=== PATIENT | male | born 1980 | race Caucasian/White ===

== ENCOUNTER 2017-11-01 14:25 | Emergency (ER) | payer MEDICARE, MEDICAID ==
[2017-11-01 15:38] VITALS: BP 121/83
--- NOTE | 2017-11-01 16:13 | EDM.PDOC ---
ED HPI GENERAL MEDICAL PROBLEM - General Chief Complaint: ENT Problem Stated Complaint: SWEELING ON LEFT SIDE OF FACE AND RED RASH Time Seen by Provider: 11/01/17 15:55 Source of Information: Reports: Patient, Family History Limitations: Reports: No Limitations - History of Present Illness INITIAL COMMENTS - FREE TEXT/NARRATIVE: Elvis presents today for complaints of left facial edema, rash and dental pain for 2 days. He reports significant swelling of left face yesterday with decrease while sleeping and improvement today. He reports concern of poor dental health and possible dental abscess. He denies fevers, chills, nausea, vomiting, stiff neck, sores to oral cavity or other concerns. He reports use of herbal supplements; ge seal, olive leaf extract and eye bright vitamins. - Related Data Allergies Allergy/AdvReac Type Severity Reaction Status Date / Time No Known Allergies Allergy Verified 07/22/14 17:22 Home Meds: Home Meds Benztropine Mesylate 11/01/17 [History] Haloperidol [Haldol] 11/01/17 [History] OLANZapine [ZyPREXA] 11/01/17 [History] Omeprazole 11/01/17 [History] Past Medical History Psychiatric History: Reports: Schizophrenia Social & Family History - Tobacco Use Smoking Status *Q: Current Every Day Smoker Years of Tobacco use: 16 Packs/Tins Daily: 1.5 ED ROS ENT - Review of Systems Review Of Systems: See Below Constitutional: Denies: Fever, Chills, Malaise, Weakness HEENT: Reports: Dental Pain. Denies: Ear Discharge, Ear Pain, Rhinitis, Sinus Problem, Throat Pain, Throat Swelling Respiratory: Denies: Shortness of Breath, Wheezing, Cough, Sputum Cardiovascular: Denies: Chest Pain, Dyspnea on Exertion, Edema, Lightheadedness , Palpitations, PND, Syncope Endocrine: Reports: No Symptoms GI/Abdominal: Reports: No Symptoms : Reports: No Symptoms Musculoskeletal: Denies: Neck Pain, Joint Pain, Joint Swelling, Muscle Pain, Muscle Stiffness Skin: Reports: Rash, Other (edema to left face/neck) Neurological: Denies: Confusion, Dizziness, Headache, Numbness, Tingling, Difficulty Walking, Weakness, Gait Disturbance Psychiatric: Reports: No Symptoms Hematologic/Lymphatic: Reports: No Symptoms Immunologic: Reports: No Symptoms ED EXAM, ENT - Physical Exam Exam: See Below Text/Narrative:: Elvis is an alert and oriented 37 year old male presenting with complaints of dental pain, edema to left side of face and concern of dental decay. He denies fever, chills, nausea, vomiting or wounds of mouth. Exam Limited By: No Limitations General Appearance: Alert, WD/WN, No Apparent Distress Eye Exam: Bilateral Eye: EOMI, Normal Inspection, PERRL Ears: Normal External Exam, Normal Canal, Hearing Grossly Normal, Normal TMs Nose: Normal Inspection, Normal Mucousa, No Blood Mouth/Throat: Dental Pain, Dental Tenderness, Gum Swelling, Muffled Voice, Pharyngeal Erythema, Tonsillar Erythema, Tonsillar Swelling, Other (significant dental decay to all remaining teeth, several cracked and missing teeth. Tenderness to teeth of left upper and lower dentition. ). No: Throat Pain, Throat Swelling, Tongue Swelling, Tonsillar Exudates, Uvular Deviation, Uvular Edema Head: Atraumatic, Normocephalic, Facial Swelling, Facial Tenderness, Other ( trace edema to left face, no erythema, fluctuance or fluid filled masses. Noted pustular rash to left cheek, no open or draining areas. ). No: Scalp Swelling, Scalp Tenderness, Facial Abrasions, Facial Ecchymosis, Sinus Tenderness Neck: Supple, Non-Tender, Full Range of Motion, Lymphadenopathy (L). No: Lymphadenopathy (R) Respiratory/Chest: No Respiratory Distress, Lungs Clear, Normal Breath Sounds, No Accessory Muscle Use, Chest Non-Tender Cardiovascular: Normal Peripheral Pulses, Regular Rate, Rhythm, No Edema, No Murmur, No Rub Back: Normal Inspection, Full Range of Motion. No: CVA Tenderness (R), CVA Tenderness (L) Extremities: Normal Inspection, Normal Range of Motion, Non-Tender, No Pedal Edema, Normal Capillary Refill Neurological: Alert, Oriented, CN II-XII Intact, Normal Cognition, No Motor/ Sensory Deficits Psychiatric: Normal Affect, Normal Mood Skin: Warm, Dry, Normal Color, Rash, Other (small pustular type rash to left cheek, no drainage noted. ). No: Ecchymosis, Erythema, Increased Warmth Course - Vital Signs Last Recorded V/S: Last Vital Signs Temp 36.9 C 11/01/17 15:51 Pulse 85 11/01/17 15:51 Resp 16 11/01/17 15:51 BP 121/83 11/01/17 15:51 Pulse Ox 91 L 11/01/17 15:51 - Orders/Labs/Meds Labs: Laboratory Tests 11/01/17 11/01/17 Range/Units 16:20 16:20 WBC 8.8 (4.5-11.0) K/uL RBC 5.67 (4.30-5.90) M/uL Hgb 16.7 H (12.0-15.0) g/dL Hct 48.0 (40.0-54.0) % MCV 85 (80-98) fL MCH 30 (27-31) pg MCHC 35 (32-36) % Plt Count 209 (150-400) K/uL Neut % (Auto) 54 (36-66) % Lymph % (Auto) 29 (24-44) % Will % (Auto) 13 H (2-6) % Eos % (Auto) 4 (2-4) % Baso % (Auto) 1 (0-1) % Sodium 142 (140-148) mmol/L Potassium 3.6 (3.6-5.2) mmol/L Chloride 102 (100-108) mmol/L Carbon Dioxide 29 (21-32) mmol/L Anion Gap 11.4 (5.0-14.0) mmol/L BUN 10 (7-18) mg/dL Creatinine 1.1 (0.8-1.3) mg/dL Est Cr Clr Drug Dosing 99.83 mL/min Estimated GFR (MDRD) > 60 (>60) Glucose 95 (74-106) mg/dL Calcium 8.6 (8.5-10.1) mg/dL Patient lab work reviewed, all his questions were answered. He will start a course of Penicillin VK, use of ibuprofen and acetaminophen for pain as well as a dental referral. Education on dental abscess, increased or worsening of pain/symptoms. Patient verbalized understanding. Meds: Medications Discontinued Medications Generic Name Dose Route Start Last Admin Trade Name Freq PRN Reason Stop Dose Admin Penicillin V Potassium 500 mg 11/01/17 17:01 11/01/17 17:09 Veetids PO 11/01/17 17:02 500 mg ONETIME ONE Administration Departure - Departure Time of Disposition: 17:04 Disposition: Home, Self-Care 01 Condition: Good Clinical Impression: Dental abscess, Rash of face - Discharge Information Instructions: Dental Abscess, [id number] Referrals: Siddharth Levine MD [Primary Care Provider] - Forms: ED Department Discharge Additional Instructions: You have been evaluated and treated for dental abscess. Take penicillin VK 500mg by mouth every 6 hours for 7 days. Take ibuprofen and acetaminophen for pain as needed. Follow up with dental clinic referral on 11/04/17 for further care. Return for worsening, issues or concerns. - Assessment/Plan Assessment:: Dental Abscess Rash of face Plan: Patient evaluated and treated for dental abscess. Take penicillin VK 500mg by mouth every 6 hours for 7 days. Take ibuprofen and acetaminophen for pain as needed. Wash skin per usual routine, may use hydrocortisone for rash as needed. Follow up with primary for recheck of rash or with worsening. Rash could be from significant edema which has resolved. Follow up with dental clinic referral on 11/04/17 for further care. Return for worsening, issues or concerns.
[2017-11-01] MEDS ORDERED: Penicillin V Potassium 250 MG Tab PO ONE (17:01)
== END 2017-11-01 17:15 | disposition home or self-care (01) ==
LOC: JP.ED 14:25
DX: K04.7 Periapical abscess without sinus (principal); R51 Headache; F17.210 Nicotine dependence, cigarettes, uncomplicated; Z79.899 Other long term (current) drug therapy
CPT/HCPCS: 36415; 80048; 85025; 99283; A9270

== ENCOUNTER 2019-02-24 14:33 | Emergency (ER) | payer MEDICARE, MEDICAID ==
[2019-02-24] MEDS ORDERED: OLANZapine 10 MG Vial IM ONE (15:45)
[2019-02-24 16:02] VITALS: BP 142/97; PULSE 97
--- NOTE | 2019-02-24 16:05 | EDM.PDOCBH ---
ED HPI GENERAL MEDICAL PROBLEM - General Chief Complaint: Behavioral/Psych Stated Complaint: EVAL Time Seen by Provider: 02/24/19 16:04 Source of Information: Reports: Patient History Limitations: Reports: No Limitations - History of Present Illness INITIAL COMMENTS - FREE TEXT/NARRATIVE: pt arrived with a history of being off of his meds for 6 monthes. He has not been doing well. He is not eating on a regular basis. He has lost 30-40 lbs recently. He is a known schiophrenic and may be bipolar. He is adhd. He saw William today at the clinic and when they started talking about inpatient treatment he eloped and the x ray technologist had to find him. He has been hospitalized multiple times . He is quite noncompliant with his meds. Onset: Gradual Duration: Hour(s): Location: Reports: Generalized Associated Symptoms: Reports: Confusion, Loss of Appetite, Other ( weight loss) - Related Data Allergies Allergy/AdvReac Type Severity Reaction Status Date / Time No Known Allergies Allergy Verified 07/22/14 17:22 Home Meds: Home Meds Benztropine Mesylate 2 mg PO BID 11/01/17 [History] Omeprazole 40 mg PO BID 11/01/17 [History] FLUoxetine HCl [Fluoxetine HCl] 20 mg PO DAILY 02/24/19 [History] Haloperidol [Haldol] 2 mg PO DAILY 02/24/19 [History] OLANZapine [Olanzapine] 5 mg PO BID 02/24/19 [History] Past Medical History Psychiatric History: Reports: Schizophrenia ED ROS GENERAL - Review of Systems Review Of Systems: See Below Constitutional: Reports: Decreased Appetite, Weight Loss HEENT: Reports: No Symptoms Respiratory: Reports: No Symptoms Cardiovascular: Reports: No Symptoms Endocrine: Reports: No Symptoms GI/Abdominal: Reports: No Symptoms, Decreased Appetite, Other ( weight loss) : Reports: No Symptoms Musculoskeletal: Reports: No Symptoms Skin: Reports: No Symptoms ED EXAM, BEHAVIORAL HEALTH - Physical Exam Exam: See Below Text/Narrative:: pt is very difficult top converse with. He has flight of ideas and is not answering thing appropiately. Pt has been off of all meds for about 6 monthes. Exam Limited By: No Limitations General Appearance: Alert, No Apparent Distress, Other (pupils equal and reactive. ) Ears: Normal TMs Nose: Normal Inspection Throat/Mouth: Normal Inspection Head: Atraumatic Neck: Normal Inspection Respiratory/Chest: No Respiratory Distress Cardiovascular: Regular Rate, Rhythm GI/Abdominal: Soft, Non-Tender (Male) Exam: Deferred Rectal (Males) Exam: Deferred Back Exam: Normal Inspection Neurological: Alert, Normal Cognition, Oriented x 3 Psychiatric: Alert, Oriented, Oriental Orthodox Delusions COURSE, BEHAVIORAL HEALTH COMP - Course Vital Signs: Last Vital Signs Temp 36.5 C 02/24/19 16:29 Pulse 97 02/24/19 16:29 Resp 17 02/24/19 16:29 BP 142/97 H 02/24/19 16:29 Pulse Ox 96 02/24/19 16:29 Orders, Labs, Meds: Laboratory Tests 02/24/19 02/24/19 02/24/19 Range/Units 15:09 15:09 15:09 WBC 14.1 H (4.5-11.0) K/uL RBC 5.72 (4.30-5.90) M/uL Hgb 16.6 H (12.0-15.0) g/dL Hct 50.4 (40.0-54.0) % MCV 88 (80-98) fL MCH 29 (27-31) pg MCHC 33 (32-36) % Plt Count 288 (150-400) K/uL Neut % (Auto) 67 H (36-66) % Lymph % (Auto) 25 (24-44) % [place] % (Auto) 6 (2-6) % Eos % (Auto) 3 (2-4) % Baso % (Auto) 0 (0-1) % Sodium 141 (140-148) mmol/L Potassium 3.9 (3.6-5.2) mmol/L Chloride 103 (100-108) mmol/L Carbon Dioxide 29 (21-32) mmol/L Anion Gap 9.2 (5.0-14.0) mmol/L BUN 5 L (7-18) mg/dL Creatinine 0.9 (0.8-1.3) mg/dL Est Cr Clr Drug Dosing TNP Estimated GFR (MDRD) > 60 (>60) Glucose 97 (74-106) mg/dL Calcium 9.3 (8.5-10.1) mg/dL Total Bilirubin 0.5 (0.2-1.0) mg/dL AST 23 (15-37) U/L ALT 29 (12-78) U/L Alkaline Phosphatase 74 (46-116) U/L Total Protein 7.1 (6.4-8.2) g/dL Albumin 3.9 (3.4-5.0) g/dL Globulin 3.2 (2.3-3.5) g/dL Albumin/Globulin Ratio 1.2 (1.2-2.2) Urine Color (YELLOW) Urine Appearance (CLEAR) Urine pH (5.0-8.0) Ur Specific [place] (1.008-1.030) Urine Protein (NEGATIVE) mg/dL Urine Glucose (UA) (NEGATIVE) mg/dL Urine Ketones (NEGATIVE) mg/dL Urine Occult Blood (NEGATIVE) Urine Nitrite (NEGATIVE) Urine Bilirubin (NEGATIVE) Urine Urobilinogen (0.2-1.0) EU/dL Ur Leukocyte Esterase (NEGATIVE) Urine RBC (0-5) Urine WBC (0-5) Ur Epithelial Cells Amorphous Sediment Urine Bacteria Urine Mucus Urine Opiates Screen (NEGATIVE) Ur Oxycodone Screen (NEGATIVE) Urine Methadone Screen (NEGATIVE) Ur Propoxyphene Screen (NEGATIVE) Ur Barbiturates Screen (NEGATIVE) Ur Tricyclics Screen (NEGATIVE) Ur Phencyclidine Scrn (NEGATIVE) Ur Amphetamine Screen (NEGATIVE) U Methamphetamines Scrn (NEGATIVE) Urine MDMA Screen (NEGATIVE) U Benzodiazepines Scrn (NEGATIVE) U Cocaine Metab Screen (NEGATIVE) U Marijuana (THC) Screen (NEGATIVE) Ethyl Alcohol < 3 mg/dL 02/24/19 02/24/19 Range/Units 15:18 15:18 WBC (4.5-11.0) K/uL RBC (4.30-5.90) M/uL Hgb (12.0-15.0) g/dL Hct (40.0-54.0) % MCV (80-98) fL MCH (27-31) pg MCHC (32-36) % Plt Count (150-400) K/uL Neut % (Auto) (36-66) % Lymph % (Auto) (24-44) % [place] % (Auto) (2-6) % Eos % (Auto) (2-4) % Baso % (Auto) (0-1) % Sodium (140-148) mmol/L Potassium (3.6-5.2) mmol/L Chloride (100-108) mmol/L Carbon Dioxide (21-32) mmol/L Anion Gap (5.0-14.0) mmol/L BUN (7-18) mg/dL Creatinine (0.8-1.3) mg/dL Est Cr Clr Drug Dosing Estimated GFR (MDRD) (>60) Glucose (74-106) mg/dL Calcium (8.5-10.1) mg/dL Total Bilirubin (0.2-1.0) mg/dL AST (15-37) U/L ALT (12-78) U/L Alkaline Phosphatase (46-116) U/L Total Protein (6.4-8.2) g/dL Albumin (3.4-5.0) g/dL Globulin (2.3-3.5) g/dL Albumin/Globulin Ratio (1.2-2.2) Urine Color Yellow (YELLOW) Urine Appearance Slightly cloudy A (CLEAR) Urine pH 6.5 (5.0-8.0) Ur Specific [place] 1.020 (1.008-1.030) Urine Protein 30 H (NEGATIVE) mg/dL Urine Glucose (UA) Negative (NEGATIVE) mg/dL Urine Ketones Trace H (NEGATIVE) mg/dL Urine Occult Blood Negative (NEGATIVE) Urine Nitrite Negative (NEGATIVE) Urine Bilirubin Small H (NEGATIVE) Urine Urobilinogen 1.0 (0.2-1.0) EU/dL Ur Leukocyte Esterase Negative (NEGATIVE) Urine RBC 0-5 (0-5) Urine WBC 0-5 (0-5) Ur Epithelial Cells Few Amorphous Sediment Not seen Urine Bacteria Few Urine Mucus Moderate Urine Opiates Screen Negative (NEGATIVE) Ur Oxycodone Screen Negative (NEGATIVE) Urine Methadone Screen Negative (NEGATIVE) Ur Propoxyphene Screen Negative (NEGATIVE) Ur Barbiturates Screen Negative (NEGATIVE) Ur Tricyclics Screen Negative (NEGATIVE) Ur Phencyclidine Scrn Negative (NEGATIVE) Ur Amphetamine Screen Negative (NEGATIVE) U Methamphetamines Scrn Presumptive positive H (NEGATIVE) Urine MDMA Screen Negative (NEGATIVE) U Benzodiazepines Scrn Negative (NEGATIVE) U Cocaine Metab Screen Negative (NEGATIVE) U Marijuana (THC) Screen Negative (NEGATIVE) Ethyl Alcohol mg/dL Medications Discontinued Medications Generic Name Dose Route Start Last Admin Trade Name Freq PRN Reason Stop Dose Admin Olanzapine 10 mg 02/24/19 15:45 02/24/19 15:43 Zyprexa IM 02/24/19 15:46 10 mg ONETIME ONE Administration Medical Clearance: 02/24/19 16:13 pt was found to have meth in his urine, He has good chems otherwise. He was given zyprexia 10 mg. 02/24/19 16:53 pt has visual hallucinations. He is hearing things and he is just not funtioning. He has not taken meds for about 6 mos, He was seen by william who regulates his meds and she recommended inpt therapy and he eloped. She ended up singning a hold. She clearly does not feel he is able to funtion or be safe . 02/24/19 16:56 His drug scree is positive for Meth. 02/25/19 07:16 mary allen obtained at [facility]. His father left to get treats and did not inform anyone he was leaving. The pt Eloped. He has a 72 hour hold on him. The x ray technologist were called to find him but thus far he has not been found, Departure - Departure Time of Disposition: 22:40 Disposition: Eloped 07 Condition: Fair Clinical Impression: Schizophrenia, Poor compliance with medication - Discharge Information Referrals: Siddharth Levine MD [Primary Care Provider] - Forms: ED Department Discharge Care Plan Goals: pt did have placement in [place] at [facility] but he eloped and thus far has not been found.
== END 2019-02-24 18:45 | disposition left against medical advice (07) ==
LOC: JP.ED 14:33
DX: F20.9 Schizophrenia, unspecified (principal); Z91.14 Patient's other noncompliance with medication regimen
CPT/HCPCS: 36415; 80053; 80305; 81001; 85025; 99283; G0480; S0166

== ENCOUNTER 2019-02-26 00:09 | Emergency (ER) | payer MEDICARE, MEDICAID ==
[2019-02-26 00:15] VITALS: BP 145/102; PULSE 70
--- NOTE | 2019-02-26 00:53 | EDM.PDOCBH ---
ED HPI GENERAL MEDICAL PROBLEM - General Chief Complaint: Behavioral/Psych Stated Complaint: EVAL Time Seen by Provider: 02/26/19 00:40 Source of Information: Reports: Patient, Police History Limitations: Reports: Altered Mental Status - History of Present Illness INITIAL COMMENTS - FREE TEXT/NARRATIVE: 38-year-old male with chronic schizophrenia, having auditory and visual hallucinations and paranoid feelings. He is not suicidal or homicidal. He was placed on a 72 hour hold last night and was accepted by [facility], however he eloped but was found by police tonight standing in the cold. He was brought back in for evaluation. He is now willing to go to inpatient treatment. He feels like there are "thousands of gross" following him, they have some type of red center in their brain that allows them to track him. Onset: Unknown/Unsure Associated Symptoms: Reports: No Other Symptoms Lower Back Pain Score (Numeric/FACES): 10 - Related Data Allergies Allergy/AdvReac Type Severity Reaction Status Date / Time No Known Allergies Allergy Verified 02/26/19 00:15 Home Meds: Home Meds Benztropine Mesylate 2 mg PO BID 11/01/17 [History] Omeprazole 40 mg PO BID 11/01/17 [History] FLUoxetine HCl [Fluoxetine HCl] 20 mg PO DAILY 02/24/19 [History] Haloperidol [Haldol] 2 mg PO DAILY 02/24/19 [History] Past Medical History HEENT History: Reports: Impaired Vision Cardiovascular History: Reports: High Cholesterol Gastrointestinal History: Reports: GERD Musculoskeletal History: Reports: Fracture Other Musculoskeletal History: finger Neurological History: Reports: Concussion Psychiatric History: Reports: Addiction, Schizophrenia Other Psychiatric History: tobacco addiction Dermatologic History: Reports: Other (See Below) Other Dermatologic History: sweat glands blister in summer Social & Family History - Tobacco Use Smoking Status *Q: Current Every Day Smoker Years of Tobacco use: 20 Packs/Tins Daily: 1.5 Used Tobacco, but Quit: No Second Hand Smoke Exposure: Yes - Caffeine Use Caffeine Use: Reports: Coffee, Energy Drinks, Soda, Tea - Alcohol Use Days Per Week of Alcohol Use: 2 Number of Drinks Per Day: 1 Total Drinks Per Week: 2 - Recreational Drug Use Recreational Drug Use: Yes Drug Use in Last 12 Months: Yes Recreational Drug Type: Reports: Marijuana/Hashish, Methamphetamine Recreational Drug Use Frequency: Socially ED ROS GENERAL - Review of Systems Review Of Systems: See Below Constitutional: Reports: Chills (Was somewhat cold when standing outside but feels better now). Denies: Fever HEENT: Reports: Other (Edentulous) Respiratory: Denies: Shortness of Breath Cardiovascular: Denies: Chest Pain GI/Abdominal: Denies: Nausea, Vomiting Skin: Reports: No Symptoms Psychiatric: Reports: Hallucinations ED EXAM, BEHAVIORAL HEALTH - Physical Exam Exam: See Below Exam Limited By: No Limitations General Appearance: Alert, No Apparent Distress Throat/Mouth: Other (Edentulous, no trauma) Head: Atraumatic Respiratory/Chest: No Respiratory Distress, Lungs Clear Cardiovascular: Regular Rate, Rhythm GI/Abdominal: Non-Tender Extremities: No: Pedal Edema Neurological: Alert, Oriented x 3 Psychiatric: Alert, Normal Affect, Oriented, Auditory Hallucinations, Visual Hallucinations Skin Exam: Warm, Dry COURSE, BEHAVIORAL HEALTH COMP - Course Vital Signs: Last Vital Signs Temp 97 F 02/26/19 00:12 Pulse 70 02/26/19 00:12 Resp 16 02/26/19 00:12 BP 145/102 H 02/26/19 00:12 Pulse Ox 100 02/26/19 00:12 Re-Assessment/Re-Exam: [facility] was contacted, they kindly agreed to reassess his chart without further lab workup. Patient slept and was cooperative. [facility] again kindly accepted care of this patient and transfer will be arranged. Departure - Departure Time of Disposition: 07:36 Disposition: DC/Tfer to Other 70 Clinical Impression: Poor compliance with medication Schizophrenia Qualifiers: Schizophrenia type: paranoid schizophrenia Qualified Code(s): F20.0 - Paranoid schizophrenia - Discharge Information Referrals: PCP,None [Primary Care Provider] - Forms: ED Department Discharge Care Plan Goals: Patient will be transferred by EMS on a 72 hour hold to [facility] for inpatient psychiatric care and stabilization.
== END 2019-02-26 07:38 | disposition other institution (70) ==
LOC: JP.ED 00:09
DX: F20.0 Paranoid schizophrenia (principal); Z91.14 Patient's other noncompliance with medication regimen; K21.9 Gastro-esophageal reflux disease without esophagitis; F17.210 Nicotine dependence, cigarettes, uncomplicated; Z79.899 Other long term (current) drug therapy
CPT/HCPCS: 99284

== ENCOUNTER 2019-11-08 14:31 | Emergency (ER) | payer MEDICARE, MEDICAID ==
[2019-11-08 15:50] VITALS: BP 143/89; PULSE 86
[2019-11-08] MEDS ORDERED: Haloperidol 1 MG Tab PO ONE (16:24)
[2019-11-08] MEDS ORDERED: FLUoxetine 20 MG Cap PO STA (16:25)
[2019-11-08] MEDS ORDERED: OLANZapine 5 MG Tab PO STA (16:26)
--- NOTE | 2019-11-08 16:26 | EDM.PDOCBH ---
ED HPI GENERAL MEDICAL PROBLEM - General Chief Complaint: Behavioral/Psych Stated Complaint: ELEV FOR SEVERAL DAYS TIRED OUT Time Seen by Provider: 11/08/19 16:21 Source of Information: Reports: Patient, Family (Lives with mother but did not c ome in today. ), Police (brought him to ER today. ) History Limitations: Reports: Uncooperative - History of Present Illness INITIAL COMMENTS - FREE TEXT/NARRATIVE: 39 year old male brought to [place] ER by police for further evaluation due to increasing behaviors. Patient has a history of schizophrenia and has been off his medications for the last 1-2 months due to vague GI concerns and headache. Patient has become increasing difficulty over the last few weeks. Patient is know to be off medications for weeks to months. Mother became frustrated with behaviors today and contacted police. Patient also contacted police today due to symptoms concerns per mother. Patient state "My mother needs a break sometime, which is why police bought him to the ER today". [facility] agricultural services director are involved with family situation at this time but minimal services available. - Related Data Allergies Allergy/AdvReac Type Severity Reaction Status Date / Time No Known Allergies Allergy Verified 11/08/19 16:13 Home Meds: Home Meds Benztropine Mesylate 2 mg PO BID 11/01/17 [History] Omeprazole 40 mg PO BID 11/01/17 [History] FLUoxetine HCl [Fluoxetine HCl] 20 mg PO DAILY 02/24/19 [History] haloperidoL [Haldol] 2 mg PO DAILY 02/24/19 [History] Asenapine Maleate [Saphris] 10 mg SL ASDIRECTED 11/08/19 [History] FLUoxetine HCl [Prozac] 20 mg PO DAILY 30 Days #30 capsule 11/08/19 [Rx] OLANZapine [Olanzapine] 20 mg PO ASDIRECTED 11/08/19 [History] OLANZapine [Olanzapine] 20 mg PO DAILY 30 Days #30 tablet 11/08/19 [Rx] haloperidoL [Haldol] 2 mg PO Q12HR 30 Days #60 tab 11/08/19 [Rx] Past Medical History HEENT History: Reports: Impaired Vision Cardiovascular History: Reports: High Cholesterol Gastrointestinal History: Reports: GERD Musculoskeletal History: Reports: Fracture Other Musculoskeletal History: finger Neurological History: Reports: Concussion Psychiatric History: Reports: Addiction, Schizophrenia Other Psychiatric History: tobacco addiction Dermatologic History: Reports: Other (See Below) Other Dermatologic History: sweat glands blister in summer Social & Family History - Tobacco Use Smoking Status *Q: Heavy Tobacco Smoker Years of Tobacco use: 20 Packs/Tins Daily: 3 - Caffeine Use Caffeine Use: Reports: Soda - Recreational Drug Use Recreational Drug Use: Yes Recreational Drug Type: Reports: Marijuana/Hashish ED ROS GENERAL - Review of Systems Review Of Systems: Comprehensive ROS is negative, except as noted in HPI. ED EXAM, BEHAVIORAL HEALTH - Physical Exam Exam: See Below Exam Limited By: Uncooperative (slow to respond but onyl answers yes or no to questioning) General Appearance: Alert, WD/WN, No Apparent Distress Eye Exam: Bilateral Eye: EOMI, Normal Inspection Ears: Normal External Exam, Hearing Grossly Normal Nose: Normal Inspection Throat/Mouth: Normal Inspection, Normal Voice, No Airway Compromise Neck: Normal Inspection, Supple, Full Range of Motion Respiratory/Chest: No Respiratory Distress, Lungs Clear Cardiovascular: Normal Peripheral Pulses, Regular Rate, Rhythm GI/Abdominal: Normal Bowel Sounds, Soft, Non-Tender (Male) Exam: Deferred Rectal (Males) Exam: Deferred Neurological: Alert, CN II-XII Intact, Normal Gait Psychiatric: Alert, Flat Affect, Inattentive, Flight of Ideas Skin Exam: Warm, Dry, Intact, Normal color, No rash COURSE, BEHAVIORAL HEALTH COMP - Course Vital Signs: Last Vital Signs Temp 36.5 C 11/08/19 16:12 Pulse 86 11/08/19 16:12 Resp 16 11/08/19 16:12 BP 143/89 H 11/08/19 16:12 Pulse Ox 97 11/08/19 16:12 Orders, Labs, Meds: Laboratory Tests 11/08/19 11/08/19 11/08/19 Range/Units 16:23 16:35 16:35 WBC 13.9 H (4.5-11.0) K/uL RBC 5.01 (4.30-5.90) M/uL Hgb 15.0 (12.0-15.0) g/dL Hct 44.6 (40.0-54.0) % MCV 89 (80-98) fL MCH 30 (27-31) pg MCHC 34 (32-36) % Plt Count 270 (150-400) K/uL Neut % (Auto) 68 H (36-66) % Lymph % (Auto) 22 L (24-44) % [place] % (Auto) 6 (2-6) % Eos % (Auto) 4 (2-4) % Baso % (Auto) 1 (0-1) % Sodium 141 (140-148) mmol/L Potassium 3.9 (3.6-5.2) mmol/L Chloride 105 (100-108) mmol/L Carbon Dioxide 30 (21-32) mmol/L Anion Gap 6.3 (5.0-14.0) mmol/L BUN 11 D (7-18) mg/dL Creatinine 0.8 (0.8-1.3) mg/dL Est Cr Clr Drug Dosing 134.65 mL/min Estimated GFR (MDRD) > 60 (>60) Glucose 104 (74-106) mg/dL Calcium 8.7 (8.5-10.1) mg/dL Total Bilirubin 0.3 (0.2-1.0) mg/dL Direct Bilirubin 0.08 (0.0-0.2) mg/dL Indirect Bilirubin TNP AST 10 L (15-37) U/L ALT 25 (12-78) U/L Alkaline Phosphatase 79 (46-116) U/L Creatine Kinase (39-308) U/L Total Protein 6.2 L (6.4-8.2) g/dL Albumin 3.4 (3.4-5.0) g/dL Globulin 2.8 (2.3-3.5) g/dL Albumin/Globulin Ratio 1.2 (1.2-2.2) Lipase 159 (73-393) U/L TSH, Ultra Sensitive 0.823 (0.358-3.740) uIU/mL Urine Color (YELLOW) Urine Appearance (CLEAR) Urine pH (5.0-8.0) Ur Specific [place] (1.008-1.030) Urine Protein (NEGATIVE) mg/dL Urine Glucose (UA) (NEGATIVE) mg/dL Urine Ketones (NEGATIVE) mg/dL Urine Occult Blood (NEGATIVE) Urine Nitrite (NEGATIVE) Urine Bilirubin (NEGATIVE) Urine Urobilinogen (0.2-1.0) EU/dL Ur Leukocyte Esterase (NEGATIVE) Urine RBC (0-5) Urine WBC (0-5) Ur Epithelial Cells Amorphous Sediment Urine Bacteria Urine Mucus Urine Opiates Screen Negative (NEGATIVE) Ur Oxycodone Screen Negative (NEGATIVE) Urine Methadone Screen Negative (NEGATIVE) Ur Propoxyphene Screen Negative (NEGATIVE) Ur Barbiturates Screen Negative (NEGATIVE) Ur Tricyclics Screen Negative (NEGATIVE) Ur Phencyclidine Scrn Negative (NEGATIVE) Ur Amphetamine Screen Negative (NEGATIVE) U Methamphetamines Scrn Presumptive positive H (NEGATIVE) Urine MDMA Screen Negative (NEGATIVE) U Benzodiazepines Scrn Negative (NEGATIVE) U Cocaine Metab Screen Negative (NEGATIVE) U Marijuana (THC) Screen Presumptive positive H (NEGATIVE) 11/08/19 11/08/19 Range/Units 16:45 17:49 WBC (4.5-11.0) K/uL RBC (4.30-5.90) M/uL Hgb (12.0-15.0) g/dL Hct (40.0-54.0) % MCV (80-98) fL MCH (27-31) pg MCHC (32-36) % Plt Count (150-400) K/uL Neut % (Auto) (36-66) % Lymph % (Auto) (24-44) % [place] % (Auto) (2-6) % Eos % (Auto) (2-4) % Baso % (Auto) (0-1) % Sodium (140-148) mmol/L Potassium (3.6-5.2) mmol/L Chloride (100-108) mmol/L Carbon Dioxide (21-32) mmol/L Anion Gap (5.0-14.0) mmol/L BUN (7-18) mg/dL Creatinine (0.8-1.3) mg/dL Est Cr Clr Drug Dosing mL/min Estimated GFR (MDRD) (>60) Glucose (74-106) mg/dL Calcium (8.5-10.1) mg/dL Total Bilirubin (0.2-1.0) mg/dL Direct Bilirubin (0.0-0.2) mg/dL Indirect Bilirubin AST (15-37) U/L ALT (12-78) U/L Alkaline Phosphatase (46-116) U/L Creatine Kinase 93 (39-308) U/L Total Protein (6.4-8.2) g/dL Albumin (3.4-5.0) g/dL Globulin (2.3-3.5) g/dL Albumin/Globulin Ratio (1.2-2.2) Lipase (73-393) U/L TSH, Ultra Sensitive (0.358-3.740) uIU/mL Urine Color Yellow (YELLOW) Urine Appearance Clear (CLEAR) Urine pH 6.0 (5.0-8.0) Ur Specific [place] >= 1.030 (1.008-1.030) Urine Protein Negative (NEGATIVE) mg/dL Urine Glucose (UA) Negative (NEGATIVE) mg/dL Urine Ketones Negative (NEGATIVE) mg/dL Urine Occult Blood Negative (NEGATIVE) Urine Nitrite Negative (NEGATIVE) Urine Bilirubin Negative (NEGATIVE) Urine Urobilinogen 0.2 (0.2-1.0) EU/dL Ur Leukocyte Esterase Negative (NEGATIVE) Urine RBC 0-5 (0-5) Urine WBC 0-5 (0-5) Ur Epithelial Cells Rare Amorphous Sediment Rare Urine Bacteria Not seen Urine Mucus Not seen Urine Opiates Screen (NEGATIVE) Ur Oxycodone Screen (NEGATIVE) Urine Methadone Screen (NEGATIVE) Ur Propoxyphene Screen (NEGATIVE) Ur Barbiturates Screen (NEGATIVE) Ur Tricyclics Screen (NEGATIVE) Ur Phencyclidine Scrn (NEGATIVE) Ur Amphetamine Screen (NEGATIVE) U Methamphetamines Scrn (NEGATIVE) Urine MDMA Screen (NEGATIVE) U Benzodiazepines Scrn (NEGATIVE) U Cocaine Metab Screen (NEGATIVE) U Marijuana (THC) Screen (NEGATIVE) Medications Discontinued Medications Generic Name Dose Route Start Last Admin Trade Name Corky PRN Reason Stop Dose Admin Acetaminophen 650 mg 11/08/19 16:46 11/08/19 17:23 Tylenol PO 11/08/19 16:47 650 mg NOW ONE Administration Fluoxetine HCl 20 mg 11/08/19 16:25 11/08/19 17:23 Prozac PO 11/08/19 16:26 20 mg DAILY STA Administration Haloperidol 2 mg 11/08/19 16:24 11/08/19 17:23 Haldol PO 11/08/19 16:25 2 mg ONETIME ONE Administration Olanzapine 20 mg 11/08/19 16:26 11/08/19 17:23 Zyprexa PO 11/08/19 16:27 20 mg ONETIME STA Administration Re-Assessment/Re-Exam: Urine drug test positive for Methamphetamines which the patient smokes daily and marijuana which he states "based on state statue/law the treatment for schizophrenia is meth and marijuana". I corrected patient stating that Meth and Marijuana are not recommended medical treatments for schizophrenia and it is not in state statue or law. Patient was told that family is not comfortable with him at home if he is not taking his appropriate medications. Patient state the medication knocked him out. Patient did spill his coffee on himself and the bed. Patient is agreeable to take his prescribed medications for mental health diagnosis to enable him to return home. Patient denies thought of hurting himself for others multiple times during ER visit. Mother was contacted by nursing staff about reason for ER visit and she is comfortable with him going home if on medications. Mother is out of town picking up family from the airport today. Mother states patient's father may be willing to take in him after ER evaluation. Departure - Departure Time of Disposition: 19:36 Disposition: Home, Self-Care 01 Clinical Impression: Hallucinations, Drug abuse, amphetamine type, Mental health problem - Discharge Information Prescriptions: haloperidoL [Haldol] 2 mg PO Q12HR 30 Days #60 tab OLANZapine [Olanzapine] 20 mg PO DAILY 30 Days #30 tablet FLUoxetine HCl [Prozac] 20 mg PO DAILY 30 Days #30 capsule Instructions: Schizophrenia, Stimulant Use Disorder-Amphetamines, Supporting Someone With Substance Use Disorder Referrals: Siddharth Levine MD [Primary Care Provider] - Forms: ED Department Discharge Additional Instructions: 1. Take medication for chronic mental health condition which is recommended by PCP and medical 2. Haldol 2mg BID #60Prozac 20 mg daily #30 and Zyprexa 20 mg #30 daily prescribed x 1 month. 3. Contact PCP for recheck to ensure following treatment recommendations and safety at home. Sepsis Event Note (ED) - Evaluation Sepsis Screening Result: No Definite Risk - Focused Exam Vital Signs: Vital Signs Temp Pulse Resp BP Pulse Ox 11/08/19 16:12 36.5 C 86 16 143/89 H 97 11/08/19 15:48 36.5 C 86 16 143/89 H 97
[2019-11-08] MEDS ORDERED: Acetaminophen 325 MG Tab PO ONE (16:46)
== END 2019-11-08 19:49 | disposition home or self-care (01) ==
LOC: JP.ED 14:31
DX: R44.3 Hallucinations, unspecified (principal); F99 Mental disorder, not otherwise specified; F15.10 Other stimulant abuse, uncomplicated; K21.9 Gastro-esophageal reflux disease without esophagitis; F17.210 Nicotine dependence, cigarettes, uncomplicated; Z79.899 Other long term (current) drug therapy
CPT/HCPCS: 36415; 80048; 80076; 80305; 81001; 82550; 83690; 84443; 85025; 99283; 99284; A9270

== ENCOUNTER 2021-06-13 16:54 | Emergency (ER) | payer MEDICARE, MEDICAID ==
[2021-06-13 19:20] VITALS: BP 166/91; PULSE 98
[2021-06-14] MEDS ORDERED: Nicotine Polacrilex 2 MG Gum CHEW PRN (09:14)
== END 2021-06-14 17:22 | disposition home or self-care (01) ==
LOC: JP.ED 16:54
DX: F20.0 Paranoid schizophrenia (principal); F12.10 Cannabis abuse, uncomplicated; E78.00 Pure hypercholesterolemia, unspecified; K21.9 Gastro-esophageal reflux disease without esophagitis; Z79.899 Other long term (current) drug therapy; Z72.0 Tobacco use
CPT/HCPCS: 36415; 80053; 80305-QW; 80307; 84443; 85025; 99283; 99284; A9270-GY

== ENCOUNTER 2024-10-19 09:57 | Emergency (ER) | payer MEDICARE, MEDICAID ==
[2024-10-19 10:46] VITALS: BP 139/92; PULSE 72
== END 2024-10-19 12:33 | disposition left against medical advice (07) ==
LOC: JP.ED 09:57
DX: S59.911A Unspecified injury of right forearm, initial encounter (principal); F17.200 Nicotine dependence, unspecified, uncomplicated; Z53.29 Procedure and treatment not carried out because of patient's decision for other reasons; W19.XXXA Unspecified fall, initial encounter
CPT/HCPCS: 73090-26-RT; 73090-RT; 99283